=== PATIENT | female | born 1945 | race Caucasian/White ===

== ENCOUNTER 2020-07-21 07:41 | Outpatient (REF) | payer MEDICARE, MEDICAID, SELFPAY ==
[2020-07-21 08:59] LABS: MANUAL DIFF FLAG NO
[2020-07-21 09:03] LABS: Basophils Percent Auto 0.2 % (0-2); Eosinophils Percent Auto 0.4 % (0-4); Hematocrit 37.9 % (37-47); Hemoglobin 12.5 g/dl (12.0-16.0); Imm Gran Abs Auto 0.01 X10*3/uL (0.00-0.03); Imm Gran Pct Auto 0.2 % (0.0-0.4); Lymphocytes Absolute Auto 2.4 X10*3/uL (1.2-4.9); Lymphocytes Percent Auto 42.2 % (20-40); Mean Corpuscular Hemoglobin 26.9 pg (27.0-33.0); Mean Corpuscular Volume 81.5 fL (80-98); Mean Platelet Volume 12.5 fL (9.4-12.3); Monocytes Absolute Auto 0.3 X10*3/uL (0.1-1.2); Neutrophils Absolute Auto 2.9 X10*3/uL (2.0-8.3); Platelet Count 180 X10*3/uL (160-400); Red Blood Count 4.65 X10*6/uL (4.20-5.50); Red Cell Distribution Width 14.6 % (11.0-16.0); White Blood Count 5.7 X10*3/uL (4.8-10.8)
[2020-07-21 09:15] LABS: Alanine Aminotransferase 87 U/L (0-31); Albumin Level 4.1 g/dL (3.5-5.0); Alkaline Phosphatase 74 U/L (39-117); Anion Gap 13 (12-20); Aspartate Amino Transferase 91 U/L (5-31); Bilirubin Total 0.5 mg/dL (0.0-1.0); Blood Urea Nitrogen 26 mg/dL (9-16); Calcium 8.4 mg/dL (8.4-10.2); Carbon Dioxide 26 mmol/L (22-29); Chloride 103 mmol/L (96-108); Cholesterol 151 mg/dL; Estimated Glomerular Filt Rate 46; Glucose Fasting 87 mg/dL (60-99); HDL Cholesterol 46 mg/dL; LDL Cholesterol Calculated 87 mg/dl; Potassium 3.7 mmol/l (3.3-5.1); Sodium 138 mmol/L (135-145); Total Protein 7.2 g/dL (6.5-8.0); Triglycerides 93 mg/dL
[2020-07-21 09:38] LABS: Thyroid Stimulating Hormone 3.05 uIU/mL (0.32-4.0)
[2020-07-21 09:53] LABS: Folate 15.6 ng/mL (> or = 4.0); Vitamin B12 463 pg/mL (200-900)
== END 2020-07-21 07:42 | disposition home or self-care (01) ==
LOC: HO.LAB 07:41
PROVIDERS: Visit Provider Internal Medicine
DX: E78.00 Pure hypercholesterolemia, unspecified (principal); I10 Essential (primary) hypertension; M79.10 Myalgia, unspecified site; R41.0 Disorientation, unspecified
CPT/HCPCS: 36415; 80053; 80061; 82550; 82607; 82746; 84443; 85025

== ENCOUNTER 2020-07-22 07:08 | Outpatient (REF) | payer MEDICARE, MEDICAID, SELFPAY | END 2020-07-22 07:09 | disposition home or self-care (01) | LOC: HO.LAB 07:08 | PROVIDERS: Visit Provider Internal Medicine | DX: Z20.828 Contact with and (suspected) exposure to other viral communicable diseases (principal) | CPT/HCPCS: C9803; U0003 ==

== ENCOUNTER 2020-08-11 06:48 | Outpatient (REF) | payer MEDICARE, MEDICAID, SELFPAY | END 2020-08-11 06:49 | disposition home or self-care (01) | LOC: HO.LAB 06:48 | PROVIDERS: PCP Internal Medicine; Visit Provider Internal Medicine | DX: Z20.828 Contact with and (suspected) exposure to other viral communicable diseases (principal) | CPT/HCPCS: C9803; U0003 ==

== ENCOUNTER 2020-11-28 08:14 | Outpatient (REF) | payer MEDICARE, MEDICAID, SELFPAY ==
[2020-11-28 09:37] LABS: Alanine Aminotransferase 25 U/L (0-31); Albumin Level 4.1 g/dL (3.5-5.0); Alkaline Phosphatase 82 U/L (39-117); Anion Gap 14 (12-20); Aspartate Amino Transferase 24 U/L (5-31); Bilirubin Total 0.5 mg/dL (0.0-1.0); Blood Urea Nitrogen 21 mg/dL (9-16); Calcium 9.1 mg/dL (8.4-10.2); Carbon Dioxide 23 mmol/L (22-29); Chloride 104 mmol/L (96-108); Estimated Glomerular Filt Rate 56; Glucose Random 90 mg/dL (60-115); Potassium 4.3 mmol/L (3.3-5.1); Sodium 137 mmol/L (135-145); Total Protein 7.4 g/dL (6.5-8.0)
== END 2020-11-28 08:15 | disposition home or self-care (01) ==
LOC: HO.LAB 08:14
PROVIDERS: PCP Internal Medicine; Visit Provider Internal Medicine
DX: E78.00 Pure hypercholesterolemia, unspecified (principal); I12.9 Hypertensive chronic kidney disease with stage 1 through stage 4 chronic kidney disease, or unspecified chronic kidney disease; J45.909 Unspecified asthma, uncomplicated; M17.0 Bilateral primary osteoarthritis of knee
CPT/HCPCS: 36415; 80053

== ENCOUNTER 2020-12-06 10:40 | Outpatient (REF) | payer MEDICARE, MEDICAID, SELFPAY ==
--- NOTE | ~2020-12-06 | MM_ITS ---
EXAMINATION: MM SCREENING DIGITAL BREAST TOMOSYNTHESIS, BILATERAL CLINICAL INFORMATION: Screening. Asymptomatic. The lifetime risk of breast cancer based on the Tyrer-Cuzick Model is 3%. COMPARISON: Mammography: 09/28/2019, 08/04/2018, 06/11/2017 TECHNIQUE: Digital breast tomosynthesis is performed in both the craniocaudal and mediolateral oblique views along with computer-aided detection (CAD). Synthesized 2D images are generated from the tomosynthesis. Additional exaggerated right CC view is provided. FINDINGS: The breasts are heterogeneously dense, which may obscure small masses (ACR BI-RADS breast composition Category c). There are no significant masses, abnormal calcifications, or other abnormalities. Parenchymal pattern is similar to prior exams. No significant changes. MM/MM tomosynthesis screening BI IMPRESSION: No mammographic evidence of malignancy. ASSESSMENT: BI-RADS 1: Negative RECOMMENDATION: Routine annual mammography screening. This patient's information was entered into a reminder system with a target due date for their next mammogram.
== END 2020-12-06 10:41 | disposition home or self-care (01) ==
LOC: HO.MAMMO 10:40
PROVIDERS: PCP Internal Medicine; Visit Provider Internal Medicine
DX: Z12.31 Encounter for screening mammogram for malignant neoplasm of breast (principal)
CPT/HCPCS: 77063; 77067

== ENCOUNTER 2021-12-12 08:29 | Outpatient (REF) | payer MEDICARE, MEDICAID, SELFPAY ==
[2021-12-12 08:54] LABS: MANUAL DIFF FLAG NO
[2021-12-12 10:10] LABS: Basophils Absolute Auto 0.1 X10*3/uL (0.0-0.2); Basophils Percent Auto 0.9 % (0-2); Eosinophils Absolute Auto 0.2 X10*3/uL (0.0-0.4); Eosinophils Percent Auto 1.8 % (0-4); Hemoglobin 12.8 g/dl (12.0-16.0); Imm Gran Abs Auto 0.04 X10*3/uL (0.00-0.03); Imm Gran Pct Auto 0.4 % (0.0-0.4); Lymphocytes Absolute Auto 3.5 X10*3/uL (1.2-4.9); Lymphocytes Percent Auto 32.5 % (20-40); Mean Corpuscular Hemoglobin 26.2 pg (27.0-33.0); Mean Platelet Volume 11.6 fL (9.4-12.3); Monocytes Absolute Auto 0.7 X10*3/uL (0.1-1.2); Monocytes Percent Auto 6.7 % (2-11); Neutrophils Absolute Auto 6.3 x10*3/uL (2.0-8.3); Neutrophils Percent Auto 57.7 % (45-73); Platelet Count 335 X10*3/uL (160-400); Red Blood Count 4.88 X10*6/uL (4.20-5.50); Red Cell Distribution Width 14.3 % (11.0-16.0); White Blood Count 10.9 X10*3/uL (4.8-10.8)
[2021-12-12 10:39] LABS: Alanine Aminotransferase 26 U/L (0-31); Albumin Level 4.2 g/dL (3.5-5.0); Alkaline Phosphatase 86 U/L (39-117); Anion Gap 13 (12-20); Aspartate Amino Transferase 26 U/L (5-31); Bilirubin Total 0.4 mg/dL (0.0-1.0); Blood Urea Nitrogen 18 mg/dL (9-16); Calcium 9.8 mg/dL (8.4-10.2); Carbon Dioxide 27 mmol/L (22-29); Chloride 99 mmol/L (96-108); Cholesterol 192 mg/dL; Estimated Glomerular Filt Rate 51; Glucose Random 83 mg/dL (60-115); HDL Cholesterol 64 mg/dL; LDL Cholesterol Calculated 116 mg/dl; Potassium 4.2 mmol/L (3.3-5.1); Sodium 135 mmol/L (135-145); Total Protein 7.7 g/dL (6.5-8.0); Triglycerides 62 mg/dL
== END 2021-12-12 08:30 | disposition home or self-care (01) ==
LOC: HO.LAB 08:29
PROVIDERS: PCP Internal Medicine; Visit Provider Internal Medicine
DX: E78.00 Pure hypercholesterolemia, unspecified (principal); I12.9 Hypertensive chronic kidney disease with stage 1 through stage 4 chronic kidney disease, or unspecified chronic kidney disease; N18.9 Chronic kidney disease, unspecified; J45.909 Unspecified asthma, uncomplicated; M17.0 Bilateral primary osteoarthritis of knee
CPT/HCPCS: 36415; 80053; 80061; 85025

== ENCOUNTER 2022-10-17 08:02 | Outpatient (REF) | payer MEDICARE, MEDICAID, SELFPAY ==
[2022-10-17 08:58] LABS: Basophils Absolute Auto 0.1 X10*3/uL (0.0-0.2); Basophils Percent Auto 0.8 % (0-2); Eosinophils Absolute Auto 0.2 X10*3/uL (0.0-0.4); Eosinophils Percent Auto 1.6 % (0-4); Hematocrit 40.3 % (37.0-47.0); Hemoglobin 12.8 g/dl (12.0-16.0); Imm Gran Abs Auto 0.04 X10*3/uL (0.00-0.03); Imm Gran Pct Auto 0.3 % (0.0-0.4); Lymphocytes Absolute Auto 5.3 X10*3/uL (1.2-4.9); Lymphocytes Percent Auto 39.8 % (20-40); MANUAL DIFF FLAG SCAN; Mean Corpuscular HGB Conc 31.8 g/dl (31.0-35.0); Mean Corpuscular Volume 81.7 fL (80.0-98.0); Mean Platelet Volume 10.8 fL (9.4-12.3); Monocytes Absolute Auto 0.9 X10*3/uL (0.1-1.2); Monocytes Percent Auto 6.4 % (2-11); Neutrophils Absolute Auto 6.8 x10*3/uL (2.0-8.3); Neutrophils Percent Auto 51.1 % (45-73); Platelet Count 351 X10*3/uL (160-400); Red Blood Count 4.93 X10*6/uL (4.20-5.50); Red Cell Distribution Width 14.3 % (11.0-16.0); SCAN SMEAR FLAG 1; White Blood Count 13.3 X10*3/uL (4.8-10.8)
[2022-10-17 09:17] LABS: Alanine Aminotransferase 32 U/L (0-31); Albumin Level 4.1 g/dL (3.5-5.0); Alkaline Phosphatase 95 U/L (39-117); Anion Gap 12 (12-20); Aspartate Amino Transferase 29 U/L (5-31); Bilirubin Total 0.6 mg/dL (0.0-1.0); Blood Urea Nitrogen 22 mg/dL (9-16); Calcium 9.3 mg/dL (8.4-10.2); Carbon Dioxide 25 mmol/L (22-29); Chloride 104 mmol/L (96-108); Estimated Glomerular Filt Rate 45; Glucose Random 80 mg/dL (60-115); Potassium 4.3 mmol/L (3.3-5.1); Sodium 137 mmol/L (135-145); Total Protein 7.5 g/dL (6.5-8.0)
[2022-10-17 09:34] LABS: SLIDE REVIEW VERIFIED
== END 2022-10-17 08:03 | disposition home or self-care (01) ==
LOC: HO.LAB 08:02
PROVIDERS: PCP Internal Medicine; Visit Provider Internal Medicine
DX: I12.9 Hypertensive chronic kidney disease with stage 1 through stage 4 chronic kidney disease, or unspecified chronic kidney disease (principal); N18.9 Chronic kidney disease, unspecified; E78.00 Pure hypercholesterolemia, unspecified; J45.909 Unspecified asthma, uncomplicated; Z86.010 Personal history of colon polyps; M85.80 Other specified disorders of bone density and structure, unspecified site
CPT/HCPCS: 36415; 80053; 82306; 85025

== ENCOUNTER 2023-04-01 09:10 | Outpatient (REF) | payer OTHER, SELFPAY ==
--- NOTE | ~2023-04-01 | MM_ITS ---
EXAMINATION: MM SCREENING DIGITAL BREAST TOMOSYNTHESIS, BILATERAL CLINICAL INFORMATION: Screening. Asymptomatic. COMPARISON: Mammography: 12/06/2020, 09/28/2019, and dating back to 2013. TECHNIQUE: Digital breast tomosynthesis is performed in both the craniocaudal and mediolateral oblique views along with computer-aided detection (CAD). Synthesized 2D images are generated from the tomosynthesis. FINDINGS: The breasts are heterogeneously dense, which may obscure small masses (ACR BI-RADS breast composition Category c). Grouped dermal calcifications versus artifact noted in the far inferior medial left breast. Otherwise, there are no suspicious masses, suspicious grouped calcifications, or areas of architectural distortion. The parenchymal pattern is stable from prior exams. MM/MM tomosynthesis screening BI IMPRESSION: No mammographic evidence of malignancy. ASSESSMENT: BI-RADS BI-RADS 1 - Negative RECOMMENDATION: Routine annual mammography screening. 1 year F/U This examination should not preclude the clinical evaluation of a suspicious palpable abnormality. This patient's information was entered into a reminder system with a target due date for their next mammogram.
== END 2023-04-01 09:11 | disposition home or self-care (01) ==
LOC: HO.MAMMO 09:10
PROVIDERS: PCP Internal Medicine; Visit Provider Internal Medicine
DX: Z12.31 Encounter for screening mammogram for malignant neoplasm of breast (principal)
CPT/HCPCS: 77063; 77067

== ENCOUNTER → 2023-04-01 09:45 | Outpatient (BNV) | payer OTHER, SELFPAY | PROVIDERS: PCP Internal Medicine; Visit Provider Radiology Diagnostic Radiology | DX: Z12.31 Encounter for screening mammogram for malignant neoplasm of breast (principal) | CPT/HCPCS: 77063; 77067 ==

== ENCOUNTER 2023-04-08 07:51 | Outpatient (REF) | payer OTHER, SELFPAY ==
[2023-04-08 08:10] LABS: MANUAL DIFF FLAG NO
[2023-04-08 09:00] LABS: Basophils Absolute Auto 0.1 X10*3/uL (0.0-0.2); Basophils Percent Auto 0.9 % (0-2); Eosinophils Absolute Auto 0.2 X10*3/uL (0.0-0.4); Eosinophils Percent Auto 1.8 % (0-4); Hematocrit 38.3 % (37.0-47.0); Hemoglobin 12.6 g/dl (12.0-16.0); Imm Gran Abs Auto 0.02 X10*3/uL (0.00-0.03); Imm Gran Pct Auto 0.2 % (0.0-0.4); Lymphocytes Absolute Auto 3.9 X10*3/uL (1.2-4.9); Lymphocytes Percent Auto 34.2 % (20-40); Mean Corpuscular HGB Conc 32.9 g/dl (31.0-35.0); Mean Corpuscular Hemoglobin 26.9 pg (27.0-33.0); Mean Corpuscular Volume 81.8 fL (80.0-98.0); Mean Platelet Volume 11.4 fL (9.4-12.3); Monocytes Absolute Auto 0.8 X10*3/uL (0.1-1.2); Monocytes Percent Auto 6.6 % (2-11); Neutrophils Absolute Auto 6.4 x10*3/uL (2.0-8.3); Neutrophils Percent Auto 56.3 % (45-73); Platelet Count 340 X10*3/uL (160-400); Red Blood Count 4.68 X10*6/uL (4.20-5.50); White Blood Count 11.4 X10*3/uL (4.8-10.8)
[2023-04-08 09:44] LABS: Alanine Aminotransferase 21 U/L (0-31); Albumin Level 4.2 g/dL (3.5-5.0); Alkaline Phosphatase 84 U/L (39-117); Anion Gap 12 (12-20); Aspartate Amino Transferase 24 U/L (5-31); Bilirubin Total 0.5 mg/dL (0.0-1.0); Blood Urea Nitrogen 21 mg/dL (9-16); Calcium 9.6 mg/dL (8.4-10.2); Carbon Dioxide 26 mmol/L (22-29); Chloride 100 mmol/L (96-108); Cholesterol 211 mg/dL; Estimated Glomerular Filt Rate 44; Glucose Random 82 mg/dL (60-115); HDL Cholesterol 62 mg/dL; LDL Cholesterol Calculated 132 mg/dl; Potassium 4.4 mmol/L (3.3-5.1); Sodium 134 mmol/L (135-145); Total Protein 8.1 g/dL (6.5-8.0); Triglycerides 87 mg/dL
[2023-04-08 09:52] LABS: Vitamin B12 234 pg/mL (200-900)
[2023-04-08 10:02] LABS: Thyroid Stimulating Hormone 1.63 uIU/mL (0.32-4.0)
== END 2023-04-08 07:52 | disposition home or self-care (01) ==
LOC: HO.LAB 07:51
PROVIDERS: PCP Internal Medicine; Visit Provider Internal Medicine
DX: E78.00 Pure hypercholesterolemia, unspecified (principal); I12.9 Hypertensive chronic kidney disease with stage 1 through stage 4 chronic kidney disease, or unspecified chronic kidney disease; N18.9 Chronic kidney disease, unspecified; J45.909 Unspecified asthma, uncomplicated; K21.9 Gastro-esophageal reflux disease without esophagitis
CPT/HCPCS: 36415; 80053; 80061; 82607; 84443; 85025

== ENCOUNTER 2023-05-08 07:55 | Day surgery (SDC) | payer OTHER, SELFPAY ==
--- NOTE | 2023-05-07 08:59 | HO.ANESPROP2 ---
HPI - Anesthesia Eval Consult details Narrative: 77yo F for Colonoscopy PMFSH Past Medical History Medical History (Updated 05/13/23 @ 11:20 by SUE Tay) Elevated cholesterol HTN (hypertension) Asthma Surgical History Surgical History History of vocal cord polypectomy History of total abdominal hysterectomy Hx of cholecystectomy Hx of colonoscopy Social History Social History Patient Tobacco Use Status: Never used Tobacco Meds Allergies Allergy/AdvReac Type Severity Reaction Status Date / Time amoxicillin Allergy Hives Verified 05/13/23 09:03 jennings Allergy Hives Verified 05/13/23 09:03 raspberry Allergy Hives Verified 05/13/23 09:03 shellfish derived Allergy Shortness Verified 05/13/23 09:03 of Breath Home Medications Medication Instructions Recorded Confirmed Last Taken Type albuterol sulfate 90 mcg/actuation 2 puff inhalation QID 05/07/23 05/13/23 Unknown History aerosol inhaler fluticasone propionate 50 spray intranasal 05/07/23 05/13/23 Unknown History mcg/actuation nasal spray,suspension pravastatin 80 mg tablet 80 mg PO BEDTIME 05/07/23 05/13/23 Unknown History valsartan 320 mg tablet 320 mg PO DAILY 05/07/23 05/13/23 05/08/23 History acetaminophen 325 mg tablet 325 mg PO QID PRN 05/13/23 05/13/23 Unknown History (Tylenol) Exam Exam Date and Time: May 07, 2023 0859 Pertinent Lab Results Pertinent Lab Results: Laboratory Tests 04/08/23 08:09 WBC 11.4 H Hgb 12.6 Hct 38.3 Plt Count 340 Sodium 134 L Potassium 4.4 Chloride 100 Carbon Dioxide 26 BUN 21 H Creatinine 1.18 Assessment and Plan Assessment Anesthesia Assessment: Chart Reviewed
--- NOTE | 2023-05-08 | ECG_ITS ---
Test Reason : new onset Blood Pressure : / mmHG Vent. Rate : 101 BPM Atrial Rate : 000 BPM P-R Int : 000 ms QRS Dur : 084 ms QT Int : 370 ms P-R-T Axes : 000 -03 022 degrees QTc Int : 479 ms Atrial fibrillation with rapid ventricular response Possible Inferior infarct , age undetermined Abnormal ECG When compared with ECG of 31-MAR-2003 08:28, Atrial fibrillation has replaced Sinus rhythm Vent. rate has increased BY 40 BPM Borderline criteria for Inferior infarct are now Present Nonspecific T wave abnormality now evident in Lateral leads QT has lengthened Referred By: Deborah Becerril Electronically Signed By:ABHAY COLLIER
[2023-05-08 08:15] VITALS: BMI 43.7
[2023-05-08 08:31] VITALS: BP 150/69; PULSE 77; RESP 20; TEMP 36.3; O2SAT 97
[2023-05-08] MEDS: Lactated Ringers 1,000 ML 100 ML IVCONT (08:58)
--- NOTE | 2023-05-08 09:11 | HO.ANESPROP2 ---
[facility] Past Medical History Medical History Elevated cholesterol HTN (hypertension) Asthma Functional capacity: uses cane/walker Surgical History Surgical History History of vocal cord polypectomy History of total abdominal hysterectomy Hx of cholecystectomy Hx of colonoscopy Social History Social History Patient Tobacco Use Status: Never used Tobacco Are you DNR?: No Advance Directives: No Advance Directives Information Provided: Yes Nutrition Risks: No Nutritional Risk Meds Allergies Allergy/AdvReac Type Severity Reaction Status Date / Time amoxicillin Allergy Hives Verified 05/08/23 08:33 jennings Allergy Hives Verified 05/08/23 08:33 raspberry Allergy Hives Verified 05/08/23 08:33 shellfish derived Allergy Shortness Verified 05/08/23 08:33 of Breath Active Medications: Current Medications Albuterol Sulfate (Albuterol Sulfate (0.083%) 2.5 Mg/3 Ml Vial.Neb) 2.5 mg INHALE ONCE PRN PRN Reason: Shortness of Breath/Wheezing Lactated Ringer's (Lr) 1,000 mls @ 100 mls/hr IVCONT .Q10H KEELY Last Admin: 05/08/23 08:58 Dose: 100 mls/hr Sodium Biphosphate/Sodium Phosphate (Sodium Phosphate,[place]-Dibasic 133 Ml Enema) 133 ml [place] ONCE PRN PRN Reason: Poor Colonoscopy Prep Results Home Medications Medication Instructions Recorded Confirmed Last Taken Type albuterol sulfate 90 mcg/actuation 2 puff inhalation QID 05/07/23 05/07/23 Unknown History aerosol inhaler fluticasone propionate 50 spray intranasal 05/07/23 Unknown History mcg/actuation nasal spray,suspension hydrochlorothiazide 12.5 mg capsule 12.5 mg PO DAILY 05/07/23 05/07/23 Unknown History pravastatin 80 mg tablet 80 mg PO BEDTIME 05/07/23 05/07/23 Unknown History valsartan 320 mg tablet 320 mg PO DAILY 05/07/23 05/07/23 05/08/23 History Exam Exam Date and Time: May 08, 2023 0911 Height,Weight and Vital Signs: Height 5 ft 2 in Weight 108.409 kg Last Vital Signs Temp 97.3 F 05/08/23 08:31 Pulse 77 05/08/23 08:31 Resp 20 05/08/23 08:31 BP 150/69 H 05/08/23 08:31 Pulse Ox 97 05/08/23 08:31 O2 Del Method Room Air 05/08/23 08:31 Airway Mallampati Class: II TM Dist: >3cm Neck ROM: Full Heart: RRR Lungs: CTAk Assessment and Plan Assessment Anesthesia Assessment: Anesthesia Plan Discussed Final Anesthetic Review ASA Class: III Final Preanesthetic Review: Meds/Allgs Chart Reviewed, Consent Obtained/Reviewed and Anes Risks/Benef Reviewed Patient Risk: Low Procedure Risk: Low Anesthetic Plan Anesthetic Plan: MAC: Disposition: Standard PACU
--- NOTE | 2023-05-08 11:00 | P.BOP_ITS ---
Brief Operative Note Date of Service: 05/08/23 Pre-op diagnosis: Screening Post-op diagnosis: other (Diverticulosis) Procedure: Colonoscopy to the cecum Surgeon: Joseph Núñez Anesthesia: MAC Was an Treating Engineer Helper used for this Procedure?: No Estimated blood loss (mL): 0 Pathology: none sent Condition: stable Disposition: PACU
--- NOTE | 2023-05-08 11:02 | HO.ANESPROP2 ---
[facility] Past Medical History Medical History Elevated cholesterol HTN (hypertension) Asthma Functional capacity: uses cane/walker Surgical History Surgical History History of vocal cord polypectomy History of total abdominal hysterectomy Hx of cholecystectomy Hx of colonoscopy Social History Social History Patient Tobacco Use Status: Never used Tobacco Are you DNR?: No Advance Directives: No Advance Directives Information Provided: Yes Nutrition Risks: No Nutritional Risk Meds Allergies Allergy/AdvReac Type Severity Reaction Status Date / Time amoxicillin Allergy Hives Verified 05/08/23 08:33 jennings Allergy Hives Verified 05/08/23 08:33 raspberry Allergy Hives Verified 05/08/23 08:33 shellfish derived Allergy Shortness Verified 05/08/23 08:33 of Breath Active Medications: Current Medications Albuterol Sulfate (Albuterol Sulfate (0.083%) 2.5 Mg/3 Ml Vial.Neb) 2.5 mg INHALE ONCE PRN PRN Reason: Shortness of Breath/Wheezing Lactated Ringer's (Lr) 1,000 mls @ 100 mls/hr IVCONT .Q10H KEELY Last Admin: 05/08/23 08:58 Dose: 100 mls/hr Sodium Biphosphate/Sodium Phosphate (Sodium Phosphate,[place]-Dibasic 133 Ml Enema) 133 ml [place] ONCE PRN PRN Reason: Poor Colonoscopy Prep Results Home Medications Medication Instructions Recorded Confirmed Last Taken Type albuterol sulfate 90 mcg/actuation 2 puff inhalation QID 05/07/23 05/07/23 Unknown History aerosol inhaler fluticasone propionate 50 spray intranasal 05/07/23 Unknown History mcg/actuation nasal spray,suspension hydrochlorothiazide 12.5 mg capsule 12.5 mg PO DAILY 05/07/23 05/07/23 Unknown History pravastatin 80 mg tablet 80 mg PO BEDTIME 05/07/23 05/07/23 Unknown History valsartan 320 mg tablet 320 mg PO DAILY 05/07/23 05/07/23 05/08/23 History Exam Exam Date and Time: May 08, 2023 1102 Height,Weight and Vital Signs: Height 5 ft 2 in Weight 108.409 kg Last Vital Signs Temp 97.3 F 05/08/23 08:31 Pulse 77 05/08/23 08:31 Resp 20 05/08/23 08:31 BP 150/69 H 05/08/23 08:31 Pulse Ox 97 05/08/23 08:31 O2 Del Method Room Air 05/08/23 08:31 Airway Mallampati Class: II TM Dist: >3cm Neck ROM: Full Heart: RRR Lungs: CTA Assessment and Plan Final Anesthetic Review ASA Class: III and V Final Preanesthetic Review: Meds/Allgs Chart Reviewed, Consent Obtained/Reviewed and Anes Risks/Benef Reviewed Patient Risk: Low Procedure Risk: Low Anesthetic Plan Anesthetic Plan: MAC: Disposition: Standard PACU
[2023-05-08 11:05] VITALS: BP 83/43; PULSE 127; RESP 16; TEMP 36.6; O2SAT 95
[2023-05-08 11:20] VITALS: BP 94/50; PULSE 108; RESP 20; TEMP 36.1; O2SAT 98
--- NOTE | 2023-05-08 12:01 | OP_ITS ---
DATE OF SERVICE: 05/08/2023 SURGEON: Joseph Núñez MD PREOPERATIVE DIAGNOSIS: POSTOPERATIVE DIAGNOSIS: PROCEDURE PERFORMED: Colonoscopy to cecum. ESTIMATED BLOOD LOSS: COMPLICATIONS: ANESTHESIA: Monitored anesthesia care. ASSISTANTS: SPECIMENS: POSTOPERATIVE DIAGNOSES: Colorectal cancer screening and personal history of tubular adenoma of the colon, diverticulosis, internal hemorrhoids. INDICATIONS FOR PROCEDURE: The patient presents for evaluation of colorectal cancer screening and a prior history of a tubular adenoma of the colon. Full consent obtained from her for this, including risks of bleeding and perforation. PREPOPERATIVE DIAGNOSES: Colorectal cancer screening and personal history of tubular adenoma of the colon. DESCRIPTION OF PROCEDURE: The patient was placed in the left lateral decubitus position. The digital rectal exam revealed no abnormalities. The Olympus video pediatric colonoscope was entered into the rectum and advanced to the cecum. Advancement to the cecum was difficult and required turning her into the supine position and abdominal wall pressure. However, once in the cecum, I did identify normal-appearing cecal pouch with appendiceal orifice and a normal-appearing ileocecal valve. The entire cecum and ileocecal valve appeared normal. The scope was then slowly withdrawn, assessing all mucosal surfaces carefully. Preparation was excellent. I did not visualize any sign of polyps, colitis, nor angiodysplasia. There was a mild amount of sigmoid diverticulosis. In the rectum, scope was retroflexed, visualizing internal hemorrhoids, but no other pathology. The rectal mucosa appeared normal. Scope was straightened and withdrawn from the patient. She tolerated the procedure well and was returned to recovery area in stable condition. IMPRESSION: 1. Diverticulosis. 2. Internal hemorrhoids. PLAN: Given her age and today's negative exam, I would recommend that she not need any further screening colonoscopies. As such, she will see me on a p.r.n. basis. This has been discussed with her family. MD TORRIE Madera/CARMEN / [id number]
== END 2023-05-08 11:35 | disposition home or self-care (01) ==
PROVIDERS: PCP Internal Medicine; Visit Provider Internal Medicine
PROC: 0DJD8ZZ Inspection of Lower Intestinal Tract, Via Natural or Artificial Opening Endoscopic (ICD-10-PCS; CPT 45378; principal; 2023-05-08 09:40)
DX: Z12.11 Encounter for screening for malignant neoplasm of colon (principal); Z86.010 Personal history of colon polyps; K57.30 Diverticulosis of large intestine without perforation or abscess without bleeding; K64.8 Other hemorrhoids; I10 Essential (primary) hypertension; E78.00 Pure hypercholesterolemia, unspecified; J45.909 Unspecified asthma, uncomplicated; Z79.51 Long term (current) use of inhaled steroids; Z79.899 Other long term (current) drug therapy; Z88.1 Allergy status to other antibiotic agents; Z90.49 Acquired absence of other specified parts of digestive tract
CPT/HCPCS: G0105; 93005

== ENCOUNTER 2023-05-08 11:46 | Emergency (ER) | payer OTHER, SELFPAY ==
--- NOTE | ~2023-05-08 | XR_ITS ---
EXAMINATION: XR CHEST CLINICAL INFORMATION: Dyspnea COMPARISON: None available. TECHNIQUE: Frontal view of the chest was obtained. FINDINGS: No acute finding. Lung cabral are felt to be grossly clear. Possible hiatal hernia retrocardiac The cardiac silhouette is within normal limits. The hilar regions do not appear pathologically enlarged. There is no effusion. XR/XR chest 1V IMPRESSION: No convincing evidence for acute finding. Retrocardiac opacity may well represent hiatal hernia
[2023-05-08 11:54] VITALS: BP 146/81; PULSE 106; RESP 15; TEMP 36.4; O2SAT 98; BMI 42.7
--- NOTE | 2023-05-08 12:08 | ED_ITS ---
HPI - Arrhythmia/Palpitations General Chief Complaint: Arrhythmia/Palpitations Stated Complaint: New Onset Afib Time Seen by Provider: 05/08/23 11:53 Source: patient and old records reviewed Mode of arrival: other (from PACU) Limitations: no limitations History of Present Illness HPI narrative: 77 yo female with PMH of HLD, HTN, asthma here with c/o being post routine colonoscopy when in PACU they noted she was in afib. She denies symptoms to me and states she has never had this before. She denies any symptoms before the procedure other than diarrhea, no CP/SOB calf pain MD complaint: rapid heart beat Onset (ago): unknown Duration: constant Severity: mild Context: occurred during rest Associated symptoms: denies other symptoms Related Data Home Medications Medication Instructions Recorded Confirmed albuterol sulfate 90 mcg/actuation 2 puff inhalation QID 05/07/23 05/07/23 aerosol inhaler fluticasone propionate 50 spray intranasal 05/07/23 mcg/actuation nasal spray,suspension hydrochlorothiazide 12.5 mg capsule 12.5 mg PO DAILY 05/07/23 05/07/23 pravastatin 80 mg tablet 80 mg PO BEDTIME 05/07/23 05/07/23 valsartan 320 mg tablet 320 mg PO DAILY 05/07/23 05/07/23 Previous Rx's Medication Instructions Recorded apixaban 5 mg tablet (Eliquis) 5 mg PO BID #60 tabs 05/08/23 metoprolol succinate 50 mg 50 mg PO DAILY #30 tabs 05/08/23 tablet,extended release 24 hr (Toprol XL) Allergies Allergy/AdvReac Type Severity Reaction Status Date / Time amoxicillin Allergy Hives Verified 05/08/23 08:33 jennings Allergy Hives Verified 05/08/23 08:33 raspberry Allergy Hives Verified 05/08/23 08:33 shellfish derived Allergy Shortness Verified 05/08/23 08:33 of Breath Review of Systems 2 Review of Systems: Constitutional : No Fever, No Chills, No Fatigue ENT/Mouth : No sore throat, No Rhinorrhea Eyes: No Eye Pain, No Swelling, No Redness Cardiovascular : No Chest Pain, No SOB, No Dyspnea on Exertion Respiratory : No Cough, No Sputum Gastrointestinal : No Nausea, No Vomiting, No Diarrhea, No abdominal Pain Genitourinary : No Dysuria, No Urinary Frequency, No Hematuria, Musculoskeletal : No joint pain, No Myalgias, No Joint Swelling Skin : No Skin Lesions, No rash Neuro : No Weakness, No Numbness, No Dizziness, no Headache Psych : No Anxiety/Panic, No Depression Heme/Lymph: No Bruising, No Bleeding,No Lymphadenopathy Endocrine : No Polyuria, No Polydipsia All other systems reviewed and are negative PMFSH Past Medical History Attestation statement: The following information was validated with the patient. Source: old records reviewed Medical History Elevated cholesterol HTN (hypertension) Asthma Surgical History History of vocal cord polypectomy History of total abdominal hysterectomy Hx of cholecystectomy Hx of colonoscopy Social History Social History Patient Tobacco Use Status: Never used Tobacco Advance Directives: No Advance Directives Information Provided: Yes Physical Exam 2 Vital Signs: Vital Signs: Last Vital Signs Temp 98.1 F 05/08/23 12:36 Pulse 88 05/08/23 14:37 Resp 19 05/08/23 14:37 BP 148/89 H 05/08/23 14:37 Pulse Ox 96 05/08/23 14:37 O2 Del Method Room Air 05/08/23 14:37 BMI result Body Mass Index 42.7 Appearance: Alert. Oriented X3. No acute distress. Eyes: Pupils equal, round and reactive to light. ENT: Pharynx normal. Neck: Normal inspection. Neck supple. CVS: irregular heart rate and rhythm. Pulses normal. Respiratory: No respiratory distress. Breath sounds normal. Abdomen: Soft and nontender. Skin: Skin warm and dry. Normal skin color. Normal skin turgor. Extremities: No lower extremity edema. No calf ttp Neuro: Oriented X 3. No motor deficit. No sensory deficit. Course Course Course Narrative: dilt x 2 @ 10mg Reevaluation(s) Reevaluation #1: HR down in 80s feels good will start on toprol and eliquid confirmed with Dr. Wilton crawford to start on DOAC Medications Administered Discontinued Medications Generic Name Dose Route Start Last Admin Trade Name Freq PRN Reason Stop Dose Admin Apixaban 5 mg 05/08/23 14:55 05/08/23 15:14 Apixaban 5 Mg Tablet PO 05/08/23 14:56 5 mg ONCE ONE Administration Diltiazem HCl 10 mg 05/08/23 12:19 05/08/23 12:33 Diltiazem Hcl 50 Mg/10 Ml Vial IVPUSH 05/08/23 12:20 10 mg STAT STA Administration Diltiazem HCl 10 mg 05/08/23 12:48 05/08/23 13:23 Diltiazem Hcl 50 Mg/10 Ml Vial IVPUSH 05/08/23 12:49 10 mg ONCE ONE Administration Metoprolol Succinate 12.5 mg 05/08/23 14:55 05/08/23 15:14 Metoprolol Succinate Er 12.5 Mg Halftab.Er.24h PO 05/08/23 14:56 12.5 mg ONCE ONE Administration Protocol Medical Decision Making Medical Decision Making [facility] Narrative: 77 yo female with PMH of HLD, HTN, asthma here with asymptomatic HTN post colonoscopy prep - she has no CP/SOB no signs of DVT she states this has never happened before and she feels fine. Will obtain CXR, EKG, basic labs and lytes given prep. Will start on low dose dilt and consult GI for DOAC usage. CHADsVASC2 score = 4 patient denies fall risk GIB hx or need for transfusions Differential Diagnosis Differential Diagnoses: The differential diagnosis associated with the presentation includes afib, lyte abnormality Admission/Observation Consideration of admission/observation: Escalation of care including admission/observation considered Consult Healthcare Provider Management of the patient was discussed with: Business [employer] Dean (discussed with GI if any contraindication post procedure for DOAC) Lab Data [facility] Lab Attestation statement: I reviewed the patient's lab results. 05/08/23 14:09 05/08/23 14:09 Labs: Lab Results 05/08/23 05/08/23 Range/Units 14:09 14:10 WBC 15.0 H (4.8-10.8) X10*3/uL RBC 4.84 (4.20-5.50) X10*6/uL Hgb 13.0 (12.0-16.0) g/dl Hct 38.9 (37.0-47.0) % MCV 80.4 (80.0-98.0) fL MCH 26.9 L (27.0-33.0) pg MCHC 33.4 (31.0-35.0) g/dl RDW 13.6 (11.0-16.0) % Plt Count 367 (160-400) X10*3/uL MPV 9.8 (9.4-12.3) fL Immature Gran % (Auto) 0.3 (0.0-0.4) % Neut % (Auto) 63.8 (45-73) % Lymph % (Auto) 29.8 (20-40) % Wayne % (Auto) 4.5 (2-11) % Eos % (Auto) 1.1 (0-4) % Baso % (Auto) 0.5 (0-2) % Lymph # (Auto) 4.5 (1.2-4.9) X10*3/uL Wayne # (Auto) 0.7 (0.1-1.2) X10*3/uL Eos # (Auto) 0.2 (0.0-0.4) X10*3/uL Baso # (Auto) 0.1 (0.0-0.2) X10*3/uL Abs Immat Gran (auto) 0.04 H (0.00-0.03) X10*3/uL Absolute Neuts (auto) 9.6 H (2.0-8.3) x10*3/uL Absolute Nucleated RBC 0.000 (0.0-0.012) X10*3/uL Nucleated RBC % (auto) 0.0 (0.0-0.2) /100WBC PT 12.0 (11.1-13.3) SEC INR 1.0 (0.9-1.1) Sodium 135 (135-145) mmol/L Potassium 3.7 (3.3-5.1) mmol/L Chloride 102 (96-108) mmol/L Carbon Dioxide 25 (22-29) mmol/L Anion Gap 12 (12-20) BUN 12 (9-16) mg/dL Creatinine 0.96 (0.5-1.4) mg/dL Estim Creat Clear Calc 55.2 Estimated GFR 56 Random Glucose 85 (60-115) mg/dL Calcium 9.7 (8.4-10.2) mg/dL Magnesium 1.8 (1.6-2.6) mg/dL Total Bilirubin 0.4 (0.0-1.0) mg/dL Direct Bilirubin 0.2 (0.0-0.5) mg/dL AST 23 (5-31) U/L ALT 17 (0-31) U/L Alkaline Phosphatase 88 (39-117) U/L Troponin I High Sens 4.3 (<3.5-17.0) ng/L B-Natriuretic Peptide 87 (<100) pg/mL Total Protein 7.6 (6.5-8.0) g/dL Albumin 3.9 (3.5-5.0) g/dL TSH 1.30 (0.32-4.0) uIU/mL COVID-19 (VINOD) Negative (Negative) COVID-19 Clin Com See Note Independent Interpretation I performed an independent interpretation of an: EKG and Plain X-Ray Interpretation: Rate: 101 Rhythm: afib [place]: normal Normal QRS complex. ST T wave : no KATINA qTC: slightly prolonged prior studies: changed from prior The study has been interpreted contemporaneously by me. . Radiology Impression Discussion of test interpretation with radiology: I have reviewed the radiologist's reading. Independent Historian Clinical information obtained from an independent historian. History obtained from or confirmed by: Other External Record Review External record reviewed: Inpatient record Critical Care Time Critical Care Time Critical Care Time: Yes Total Critical Care Time: 35 Attestation: repeat diltiazem IV boluses for rate control of rapid afib I attest to this time spent taking care of the patient Discharge Plan Discharge Clinical Impression: Atrial fibrillation Qualifiers: Atrial fibrillation type: unspecified Qualified Code(s): I48.91 - Unspecified atrial fibrillation Patient Disposition: Home, Self-Care Instructions: A-fib (Atrial Fibrillation) (ED), Blood Thinners (ED) Additional Instructions: hold toprol if blood pressure is less than 100 or heart rate is less than 60. return for chest pain, dizziness, trouble breathing, black or bloody stools or any other concerns. if you have a bloody nose that will not stop, you fall and hit your head, you have black or bloody stools please seek medical care. YOU CANNOT TAKE ASPIRIN, MOTRIN, ALEVE, NAPROSYN, IBUPROFEN (NSAIDS) WHILE ON ELIQUIS. TYLENOL IS OKAY. 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 START THE NEW MEDICATIONS IN THE MORNING STOP THE HYDROCHLORTHIAZIDE Prescriptions: New metoprolol succinate [Toprol XL] 50 mg tablet extended release 24 hr 50 mg PO DAILY Qty: 30 0RF Eliquis 5 mg tablet 5 mg PO BID Qty: 60 0RF No Action pravastatin 80 mg tablet 80 mg PO BEDTIME valsartan 320 mg tablet 320 mg PO DAILY hydrochlorothiazide 12.5 mg capsule 12.5 mg PO DAILY albuterol sulfate 90 mcg/actuation HFA aerosol inhaler 2 puff INHALATION QID fluticasone propionate 50 mcg/actuation spray,suspension intranasal Referrals: Katie Rodriguez MD [Primary Care Provider] - (call for next appointment) Interventions: ED Discharge Assessment Last Done: 05/08/23 15:32 Discharge Date/Time: 05/08/23 15:32
[2023-05-08] MEDS: dilTIAZem HCL 50 MG/10 ML VIAL 10 MG IVPUSH ×2 (12:33→13:23)
[2023-05-08 12:36] VITALS: BP 127/105; PULSE 121; RESP 14; TEMP 36.7; O2SAT 96
--- NOTE | 2023-05-08 12:37 | PC.NURSE ---
pt comes in from pacu after new onset afib post colonoscopy. pt reports no pain, no sob, chest pain or other symptoms. HR 97-130, afib on monitor. Cardizem IV push given per MAR labs pending. will ctm
--- NOTE | 2023-05-08 13:26 | PC.NURSE ---
HR 90s-120s, second dose of diltiazem given per MAR, HR as low as 80s, still jumps up to 110s.
[2023-05-08 14:15] LABS: MANUAL DIFF FLAG NO
[2023-05-08 14:16] LABS: Basophils Absolute Auto 0.1 X10*3/uL (0.0-0.2); Basophils Percent Auto 0.5 % (0-2); Eosinophils Absolute Auto 0.2 X10*3/uL (0.0-0.4); Eosinophils Percent Auto 1.1 % (0-4); Hematocrit 38.9 % (37.0-47.0); Imm Gran Abs Auto 0.04 X10*3/uL (0.00-0.03); Imm Gran Pct Auto 0.3 % (0.0-0.4); Lymphocytes Absolute Auto 4.5 X10*3/uL (1.2-4.9); Lymphocytes Percent Auto 29.8 % (20-40); Mean Corpuscular HGB Conc 33.4 g/dl (31.0-35.0); Mean Corpuscular Hemoglobin 26.9 pg (27.0-33.0); Mean Corpuscular Volume 80.4 fL (80.0-98.0); Mean Platelet Volume 9.8 fL (9.4-12.3); Monocytes Absolute Auto 0.7 X10*3/uL (0.1-1.2); Monocytes Percent Auto 4.5 % (2-11); Neutrophils Absolute Auto 9.6 x10*3/uL (2.0-8.3); Neutrophils Percent Auto 63.8 % (45-73); Platelet Count 367 X10*3/uL (160-400); Red Blood Count 4.84 X10*6/uL (4.20-5.50); Red Cell Distribution Width 13.6 % (11.0-16.0)
[2023-05-08 14:29] LABS: COVID-19 Test Negative (Negative); IDNOW Serial# 6674DD1D
[2023-05-08 14:37] VITALS: BP 148/89; PULSE 88; RESP 19; O2SAT 96
[2023-05-08 14:45] LABS: B Type Natriuretic Peptide 87 pg/mL (<100)
[2023-05-08 14:46] LABS: Alanine Aminotransferase 17 U/L (0-31); Albumin Level 3.9 g/dL (3.5-5.0); Alkaline Phosphatase 88 U/L (39-117); Anion Gap 12 (12-20); Aspartate Amino Transferase 23 U/L (5-31); Bilirubin Direct 0.2 mg/dL (0.0-0.5); Bilirubin Total 0.4 mg/dL (0.0-1.0); Blood Urea Nitrogen 12 mg/dL (9-16); Calcium 9.7 mg/dL (8.4-10.2); Carbon Dioxide 25 mmol/L (22-29); Chloride 102 mmol/L (96-108); Creatinine Clr Calc Pharmacy 55.2; Estimated Glomerular Filt Rate 56; Glucose Random 85 mg/dL (60-115); Magnesium 1.8 mg/dL (1.6-2.6); Potassium 3.7 mmol/L (3.3-5.1); Sodium 135 mmol/L (135-145); Total Protein 7.6 g/dL (6.5-8.0)
[2023-05-08 14:47] LABS: Troponin-I High Sensitivity 4.3 ng/L (<3.5-17.0)
[2023-05-08] MEDS: Apixaban 5 MG TABLET PO (15:14)
[2023-05-08] MEDS: Metoprolol Succinate ER 12.5 MG HALFTAB.ER.24H PO (15:14)
--- NOTE | 2023-05-08 15:24 | ECG_ITS ---
Test Reason : afib Blood Pressure : / mmHG Vent. Rate : 115 BPM Atrial Rate : 000 BPM P-R Int : 000 ms QRS Dur : 082 ms QT Int : 340 ms P-R-T Axes : 000 -03 048 degrees QTc Int : 470 ms Atrial fibrillation with rapid ventricular response Low voltage QRS Nonspecific ST and T wave abnormality Abnormal ECG When compared with ECG of 08-MAY-2023 11:09, No significant change was found Referred By: Yaritza Greenberg Electronically Signed By:ABHAY COLLIER
== END 2023-05-08 15:32 | disposition home or self-care (01) ==
PROVIDERS: Emergency Provider Emergency Medicine; PCP Internal Medicine
DX: I48.91 Unspecified atrial fibrillation (principal); R06.02 Shortness of breath; I10 Essential (primary) hypertension; Z20.822 Contact with and (suspected) exposure to COVID-19; Z20.828 Contact with and (suspected) exposure to other viral communicable diseases; Z79.899 Other long term (current) drug therapy
CPT/HCPCS: 71045; 80048; 80076; 83735; 83880; 84443; 84484; 85025; 85610; 87635; 93005; 96374; 96376; 99284

== ENCOUNTER 2023-05-13 08:36 | Outpatient (AMB) | payer OTHER, SELFPAY ==
--- NOTE | 2023-05-13 08:56 | MHC.OFFVIS ---
Intake Vital Signs 05/13/23 08:57 Height 5 ft 2 in Weight 231 lb 14.821 oz BMI 42.4 BP 114/62 Blood Pressure Location Lt brachial Position Sitting Pulse 90 Intake Visit Reasons: C Follow up/AFIB Intake Note: [facility] [place] F/u up /Afib Stockfeed Miller Required: No Plate Finisher: Plate Finisher Present Accompanied by: Daughter Allergies amoxicillin Allergy (Verified 05/13/23 09:03) Hives jennings Allergy (Verified 05/13/23 09:03) Hives raspberry Allergy (Verified 05/13/23 09:03) Hives shellfish derived Allergy (Verified 05/13/23 09:03) Shortness of Breath Medication List - Last Reconciled 05/13/23 by Joyce Orta NP-C acetaminophen (Tylenol) 325 mg PO QID PRN albuterol sulfate 90 mcg/actuation 2 puffs inhalation QID apixaban (Eliquis) 5 mg PO BID fluticasone propionate 50 mcg/actuation sprays intranasal metoprolol succinate ER (Toprol XL) 50 mg PO DAILY pravastatin 80 mg PO BEDTIME valsartan 320 mg PO DAILY HPI [facility] [place] Follow up/AFIB HPI Details Mary is a 77-year-old female with past medical history morbid obesity, hypertension, hyperlipidemia, asthma who recently underwent colonoscopy and was noted to have new finding of atrial fibrillation in the recovery period. She was recent to the emergency room for further evaluation where she was started on metoprolol and Eliquis. Today she reports she has been feeling well since her ER visit on 05/08/2023. She does not notice any heart palpitations. She has no chest discomfort at rest or with activity. She has some mild shortness of breath with activity which is not new for her. She ambulates with a cane. No presyncope, syncope, falls. No PND, orthopnea or edema. No bleeding issues reported with anticoagulation use. Taking meds as directed. She has no known cardiac history and has never been told she had AFib in the past. Nonsmoker, no alcohol use. 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 Daughter is present. [facility] Medical History (Updated 05/13/23 @ 11:20 by VARGAS TayC) Elevated cholesterol HTN (hypertension) Asthma Surgical History History of vocal cord polypectomy History of total abdominal hysterectomy Hx of cholecystectomy Hx of colonoscopy Social History Patient Tobacco Use Status: Never used Tobacco Review of Systems Const All systems reviewed & are unremarkable except as noted in HPI and below ENT Denies dizziness Card Denies chest pain, Denies chest pain at rest, Denies chest pain with activity, Denies rapid heart rate, Denies pedal edema, Denies edema, Denies leg edema, Denies lightheadedness, Denies palpitations, Denies dyspnea, Denies dyspnea on exertion and Denies orthopnea Resp Denies cough, Denies dyspnea and Denies dyspnea on exertion GI Denies hematochezia and Denies change in stool character Musc Details: arthritis joint pains at times Denies abnormal gait, Denies limited range of motion, Denies muscle cramps, Denies muscle weakness, Denies numbness, Denies radiating pain into limb, Denies stiffness and Denies tingling Neuro Denies abnormal gait, Denies dizziness, Denies numbness and Denies tingling Endo Denies palpitations Physical Exam Vital Signs: Last Vital Signs Pulse 90 05/13/23 08:57 BP 114/62 05/13/23 08:57 BMI result Body Mass Index 42.4 Const General: cooperative, healthy appearing, comfortable and no acute distress Orientation/consciousness: patient oriented x3 Neck Neck: Yes normal visual inspection Resp Effort & Inspection: normal respiratory effort Auscultation: clear to auscultation bilaterally, no crackles, no rales, no rhonchi and no wheezes Cardio Jugular venous distension: no JVD Rate: regular rate Rhythm: regular rhythm Heart sounds: S1 normal heart sound present, S2 normal heart sound present, no gallops, no murmurs and no rubs Neuro General: patient oriented x3 Extrem General: Yes normal to inspection Psych Appearance: grossly normal Mental Status: mental status grossly normal Speech and movement: Normal speech and movement present Office Procedures EKG Details: Today read by me, normal sinus rhythm, inferior Q-waves suggestive of prior inferior infarct, can not exclude anterior infarct, QTC 430 milliseconds, rate 90 [id number], Complete Assessment & Plan Assessment & Plan (1) Atrial fibrillation: Code(s): I48.91 - Unspecified atrial fibrillation Qualifiers: Atrial fibrillation type: unspecified Qualified Code(s): I48.91 - Unspecified atrial fibrillation Plan: New finding of atrial fibrillation in the postop period Post colonoscopy on 05/08/2023. From recover she was sent to the emergency room for further evaluation. She was started on metoprolol XL 50 mg daily for heart rate control. She had been on hydrochlorothiazide which was stopped at that time. She was continued on her usual valsartan. Chads Vasc score of 4. She was started on Eliquis 5 mg b.i.d. for anticoagulation which she has been tolerating well without any signs of bleeding. EKG done today showing sinus rhythm, old inferior infarct, can not exclude anterior infarct, rate 90. She denies anginal symptoms. She is unable to exercise on a treadmill as she ambulates with a cane and is morbidly obese. Will order a pharmacological nuclear stress test to evaluate for infarct or ischemia. Will order echocardiogram to assess for structural heart disease. Will order Holter monitor to evaluate for paroxysmal atrial fibrillation. Continue on metoprolol and Eliquis. Diagnosis of AFib, stroke risk with AFib reviewed with her and the need for her current med management discussed. Cardiology follow-up in 4-6 weeks, sooner if needed (2) HTN (hypertension): Code(s): I10 - Essential (primary) hypertension Qualifiers: Hypertension type: primary hypertension Qualified Code(s): I10 - Essential (primary) hypertension Plan: Well controlled at this time. No med changes made (3) Elevated cholesterol: Code(s): E78.00 - Pure hypercholesterolemia, unspecified Plan: Labs done 04/08/2023 shows LDL 132. She is on pravastatin which is followed by her PCP. If she is found to have abnormal stress, CAD then ideal LDL goal will likely be less than 70 and more aggressive management will be needed. (4) Abnormal EKG: Code(s): R94.31 - Abnormal electrocardiogram [ECG] [EKG] (5) Hospital discharge follow-up: Code(s): Z09 - Encounter for follow-up examination after completed treatment for conditions other than malignant neoplasm Orders: Orders CA echo transthoracic complete Today I48.91 - Unspecified atrial fibrillation, R94.31 - Abnormal electrocardiogram [ECG] [EKG] CA lexiscan stress w fernando Today I48.91 - Unspecified atrial fibrillation, R94.31 - Abnormal electrocardiogram [ECG] [EKG] NM cardiolite stress test Today I48.91 - Unspecified atrial fibrillation, R94.31 - Abnormal electrocardiogram [ECG] [EKG] ECG 3 day holter monitor Today I48.91 - Unspecified atrial fibrillation Coding Level of Care Code New Pt Level 4 (43179) Diagnoses Atrial fibrillation I48.91 Atrial fibrillation type: unspecified Primary hypertension I10 Hypertension type: primary hypertension Elevated cholesterol E78.00 Abnormal EKG R94.31 Hospital discharge follow-up Z09 CPT Codes EKG - CPT: 92747-[id number], Complete ([id number]) Time Spent (min) 30
[2023-05-13 08:57] VITALS: BP 114/62; PULSE 90; BMI 42.4
== END 2023-05-13 09:31 | disposition home or self-care (01) ==
PROVIDERS: PCP Internal Medicine; Visit Provider Nurse Practitioner Family
DX: I48.91 Unspecified atrial fibrillation (principal); I10 Essential (primary) hypertension; E78.00 Pure hypercholesterolemia, unspecified; R94.31 Abnormal electrocardiogram [ECG] [EKG]; Z09 Encounter for follow-up examination after completed treatment for conditions other than malignant neoplasm
CPT/HCPCS: 93010; 99204

== ENCOUNTER → 2023-05-13 08:36 | Outpatient (BNVA) | payer OTHER, SELFPAY | PROVIDERS: PCP Internal Medicine; Visit Provider Nurse Practitioner Family | DX: Z09 Encounter for follow-up examination after completed treatment for conditions other than malignant neoplasm (principal); I48.91 Unspecified atrial fibrillation; R94.31 Abnormal electrocardiogram [ECG] [EKG]; I10 Essential (primary) hypertension; E78.00 Pure hypercholesterolemia, unspecified | CPT/HCPCS: 93005 ==

== ENCOUNTER → 2023-06-17 11:07 | Outpatient (REF) | payer OTHER, SELFPAY ==
--- NOTE | 2023-06-17 11:10 | CA_ITS ---
Transthoracic Echocardiogram Patient (Last, First, Middle): Mary Waldron E Gender: Female Date of : 1945 Age: 77 Procedure Date: 06/17/2023 Procedure Type: Transthoracic Echocardiogram Location: OP Height: 165.1 cm Weight: 108.41 kg BSA: 2.13 m2 Heart Rate: bpm BP: 120 / 70 mmHg Heavy Media Operator: CHRISTI/GUERITA Referring MD: Joyce Orta LINK WIRE FABRIC MACHINE OPERATORHali Symptoms: I48.91 - Unspecified atrial fibrillation Study Quality: Fair, contrast ECG Rhythm: Sinus Conclusions: - The left ventricular systolic function is normal. The calculated ejection fraction is 68% by biplane method. - No obvious valvular pathology seen on this study. Findings Procedure Information Contrast agent, definity, is being given per protocol without apparent complications. Left Ventricle Normal left ventricular cavity size. There is normal left ventricular wall thickness. The left ventricular systolic function is normal. The calculated ejection fraction is 68% by biplane method. There is no evidence of regional wall motion abnormalities. Diastolic function is normal for age. Right Ventricle Normal right ventricular cavity size and systolic function. Atria Both atria are normal in size. Aortic Valve There is a normal trileaflet aortic valve. There is no aortic valve stenosis. There is trace (trivial) aortic valve regurgitation. Mitral Valve The mitral valve appears normal. There is trace mitral valve regurgitation. There is no mitral valve stenosis. Pulmonic Valve The pulmonic valve is likely normal. Tricuspid Valve There is mild tricuspid valve regurgitation. There is no evidence of pulmonary hypertension. Great Vessels The asc aorta is normal in size. Venous The inferior vena cava is normal in size and collapses greater than 50% with inspiration. Pericardium/Pleural There is no evidence of pericardial effusion. Prior Study Comparison No significant change compared to prior study dated: 05/07/2017. Recommendations, Care & Conclusions No obvious valvular pathology seen on this study. Measurements 2D Linear Measurements IVSd: 0.87 0.6-0.9/0.6-1.0 cm LVIDd: 4.22 3.9-5.3/4.2-5.9 cm LVIDd Index: 1.98 2.4-3.2/2.2-3.1 cm/m2 LVIDs: 2.62 2.0-3.6 cm LVPWd: 1.05 0.7-1.1 cm LA Diam: 3.20 2.7-3.8/3.0-4.0 cm LAIDs Index: 1.50 1.5-2.3 cm/m2 LV Mass: 162.22 67-162/88-224 g LV Mass Index: 76.16 43-95/49-115 g/m2 LVOT Diam: 1.90 3.0+(-)1.3 cm 2D Systolic Function EF 4C: 69.20 >55% EF 2C: 67.30 >55% EF BiP: 67.60 >55% Mitral Valve MV Pk E: 1.01 MV PK A: 0.79 MV Decel Time: 243.00 E/A: 1.30 E'Lateral: 9.14 E'Medial: 8.59 E/E' Med: 11.80 E/E' Lat: 11.10 PHT: 71.00 MVA PHT: 3.10 Decel [place]: 4.15 Aortic Valve AoV Pk Homer: 1.41 AoV Mn Homer: 0.91 AoV VTI: 0.37 AoV Pk Grad: 8.00 Aov Mn Grad: 4.00 ANDREW Cont.VTI: 1.74 LVOT LVOT Pk Homer: 0.84 LVOT Mn Homer: 0.54 LVOT VTI: 0.23 LVOT Pk Grad: 3.00 LVOT Mn Grad: 1.00 LVOT Diam: 1.90 LVOT Area: 2.84 Diastolic Function MV Pk E: 1.01 MV Pk A: 0.79 E/A: 1.30 E'Medial: 8.59 E/E' Med: 11.80 E' Laterial: 9.14 E/E' Lat: 11.10 Right Ventricle TAPSE (mm): 27.20 TVS' Homer: 11.60 Tricuspid Valve TR Pk Homer: 2.63 TR Pk Grad: 28.00 RA Press: 3.00 RVSP: 31.00 Great Vessels Aorta Sinus of Valsalva: 3.10 2.0-3.5 cm Ao Asc: 3.10 2.1-3.4 cm Updated in Other Vendor System with Status of Final Jesus Alberto Grider MD electronically signed on 06/18/2023 9:02:16 AM with status of Final
--- NOTE | 2023-06-17 11:10 | HM_ITS ---
* Total monitoring time 3 days. * Underlying rhythm is sinus with an average rate of 68/Min. Range 48 to 142/Min. * Rare supraventricular and ventricular ectopy. * No significant pauses or AV blocks. * No patient markers. No diary events. MTDD
== END ==
LOC: HO.CARD 11:07
PROVIDERS: PCP Internal Medicine; Visit Provider Nurse Practitioner Family
DX: I48.91 Unspecified atrial fibrillation (principal); R94.31 Abnormal electrocardiogram [ECG] [EKG]
CPT/HCPCS: 93242; 93306; Q9957

== ENCOUNTER → 2023-06-17 11:10 | Outpatient (BNV) | payer OTHER, SELFPAY | PROVIDERS: PCP Internal Medicine; Visit Provider Internal Medicine | DX: I47.10 Supraventricular tachycardia, unspecified (principal) | CPT/HCPCS: 93244; 93306 ==

== ENCOUNTER → 2023-08-01 07:41 | Outpatient (REF) | payer OTHER, SELFPAY ==
--- NOTE | ~2023-08-01 | NM_ITS ---
Myocardial perfusion study Indication: Atrial fibrillation to evaluate for myocardial ischemia Technique: The patient was brought in for a Lexiscan perfusion study on 08/01/2023. Patient performed low-level exercise and was injected 0.4 mg of Lexiscan intravenously. Within a minute of injection, 30 mCi of sestamibi was given intravenously. Images were obtained using the SPECT gamma camera interlaced with the gating device. Images were obtained in supine position. Resting perfusion study was performed on 08/06/2023. Patient was administered 30 mCi of sestamibi intravenously at rest. Images were then obtained in supine position. Images obtained with and without CT attenuation. Total DLP 167 mGy-cm. Images were processed with the software and compared side to side in short axis, horizontal long axis and vertical long axis views. Findings: Both stress and rest perfusion study was somewhat suboptimal due to intense subdiaphragmatic liver uptake as well as both arms by the patient's side causing distal lateral wall attenuation artifact. Also during stress perfusion study there appears to be gating artifact The stress perfusion study showed non attenuated images show severely reduced uptake in the distal lateral wall as well as mildly reduced uptake in the mid and basal inferior and severely reduced uptake in the inferoapical wall of the LV myocardium. Attenuation corrected images show normalized uptake of radiotracer in all segments of LV myocardium. The gated study shows normal LV systolic function with calculated LVEF of 62%. LV cavity is normal size. The gated study shows normal systolic wall thickening and contraction of segments. Resting study shows non attenuated images show no significant change in perfusion pattern compared to stress perfusion study. Attenuation corrected images show mildly reduced uptake in the apex of the LV myocardium. Gating at rest reveals normal systolic wall motion with ejection fraction at 71%. The findings are consistent with no clear reversible defect. Fixed defect noted on non attenuated corrected images most likely due to attenuation.. NM/NM cardiolite stress test Impression: 1. Myocardial perfusion imaging study shows likely normal myocardial perfusion 2. Gated LVEF is 62% 3. Transient ischemic dilatation not present EKG is nondiagnostic for ischemia
--- NOTE | 2023-08-01 07:47 | CA_ITS ---
Acquisition Time: 2023-08-01 07:51:15 Total Exercise Time: 00:02:00 Test Indications: Dyspnea Medications: SEE H Protocol: LEXISCAN Max HR: 108 BPM 76% of Pred: 141 BPM Max BP: 118/072 mmHG Max Work Load: 1.0 METS Pharmacolgical stress test with lexiscan injection while sitting and kicking her legs, without anginal symptoms, without arrhythmias, with normotensive response to injection, with nondiagnoistic EKGs. Nuclear images pending. Test reviewed with Dr. Abdullahi. Referred By: Joyce Orta Overread By: Kizzy Sweeney
== END ==
LOC: HO.CARD 07:41
PROVIDERS: PCP Internal Medicine; Visit Provider Nurse Practitioner Family
DX: I48.91 Unspecified atrial fibrillation (principal); R94.31 Abnormal electrocardiogram [ECG] [EKG]
CPT/HCPCS: 78452; 93017; A9500; J0280; J2785

== ENCOUNTER → 2023-08-01 07:47 | Outpatient (BNV) | payer OTHER, SELFPAY | PROVIDERS: PCP Internal Medicine; Visit Provider Nurse Practitioner | DX: R06.00 Dyspnea, unspecified (principal) | CPT/HCPCS: 78452; 93016; 93018 ==

== ENCOUNTER 2023-10-15 08:42 | Outpatient (REF) | payer OTHER, SELFPAY ==
[2023-10-15 11:40] LABS: Alanine Aminotransferase 19 U/L (0-31); Albumin Level 4.2 g/dL (3.5-5.0); Alkaline Phosphatase 88 U/L (39-117); Anion Gap 14 (12-20); Aspartate Amino Transferase 21 U/L (5-31); Bilirubin Total 0.4 mg/dL (0.0-1.0); Blood Urea Nitrogen 18 mg/dL (9-16); Calcium 9.6 mg/dL (8.4-10.2); Carbon Dioxide 23 mmol/L (22-29); Chloride 104 mmol/L (96-108); Estimated Glomerular Filt Rate 51; Glucose Random 82 mg/dL (60-115); Potassium 4.4 mmol/L (3.3-5.1); Sodium 137 mmol/L (135-145); Total Protein 7.9 g/dL (6.5-8.0); Vitamin D 25-OH Total 31.6 ng/mL (>30)
[2023-10-15 16:56] LABS: Folate 9.5 ng/mL (> or = 4.0)
[2023-10-16 15:39] LABS: Vitamin B12 177 pg/mL (200-900)
== END 2023-10-15 08:43 | disposition home or self-care (01) ==
LOC: HO.LAB 08:42
PROVIDERS: PCP Internal Medicine; Visit Provider Internal Medicine
DX: E78.00 Pure hypercholesterolemia, unspecified (principal); E87.1 Hypo-osmolality and hyponatremia; H26.9 Unspecified cataract; I12.9 Hypertensive chronic kidney disease with stage 1 through stage 4 chronic kidney disease, or unspecified chronic kidney disease; N18.9 Chronic kidney disease, unspecified; M81.8 Other osteoporosis without current pathological fracture; Z86.010 Personal history of colon polyps
CPT/HCPCS: 36415; 80053; 82306; 82607; 82746

== ENCOUNTER 2024-04-06 10:10 | Outpatient (REF) | payer OTHER, SELFPAY ==
--- NOTE | ~2024-04-06 | MM_ITS ---
EXAMINATION: MM SCREENING DIGITAL BREAST TOMOSYNTHESIS, BILATERAL CLINICAL INFORMATION: Screening. Asymptomatic. COMPARISON: Mammography: This study is compared with prior exams dating back to 2019. TECHNIQUE: Digital breast tomosynthesis is performed in both the craniocaudal and mediolateral oblique views along with computer-aided detection (CAD). Synthesized 2D images are generated from the tomosynthesis. FINDINGS: The breasts are heterogeneously dense, which may obscure small masses (ACR BI-RADS breast composition Category c). There are unchanged, benign calcifications of the skin of the inferior aspect of the left breast. There are no significant masses, abnormal calcifications, or other abnormalities. MM/MM tomosynthesis screening BI IMPRESSION: No mammographic evidence of malignancy. ASSESSMENT: BI-RADS BI-RADS 2 - Benign Findings RECOMMENDATION: Routine annual mammography screening. 1 year F/U This examination should not preclude the clinical evaluation of a suspicious palpable abnormality. This patient's information was entered into a reminder system with a target due date for their next mammogram. Electronically signed by: Hamida Smith MD 05/04/2024 09:57 AM EDT
== END 2024-04-06 10:11 | disposition home or self-care (01) ==
LOC: HO.MAMMO 10:10
PROVIDERS: PCP Internal Medicine; Visit Provider Internal Medicine
DX: Z12.31 Encounter for screening mammogram for malignant neoplasm of breast (principal)
CPT/HCPCS: 77063; 77067

== ENCOUNTER → 2024-04-06 10:30 | Outpatient (BNV) | payer OTHER, SELFPAY | PROVIDERS: PCP Internal Medicine; Visit Provider Radiology Diagnostic Radiology | DX: Z12.31 Encounter for screening mammogram for malignant neoplasm of breast (principal) | CPT/HCPCS: 77063; 77067 ==

== ENCOUNTER 2024-05-06 08:27 | Outpatient (REF) | payer OTHER, SELFPAY ==
[2024-05-06 08:49] LABS: MANUAL DIFF FLAG NO
[2024-05-06 09:36] LABS: Basophils Absolute Auto 0.1 X10*3/uL (0.0-0.2); Basophils Percent Auto 0.9 % (0-2); Eosinophils Absolute Auto 0.2 X10*3/uL (0.0-0.4); Eosinophils Percent Auto 1.7 % (0-4); Hematocrit 35.6 % (37.0-47.0); Hemoglobin 11.7 g/dl (12.0-16.0); Imm Gran Abs Auto 0.03 X10*3/uL (0.00-0.03); Imm Gran Pct Auto 0.3 % (0.0-0.4); Lymphocytes Absolute Auto 3.9 X10*3/uL (1.2-4.9); Lymphocytes Percent Auto 34.3 % (20-40); Mean Corpuscular HGB Conc 32.9 g/dl (31.0-35.0); Mean Corpuscular Hemoglobin 26.8 pg (27.0-33.0); Mean Corpuscular Volume 81.5 fL (80.0-98.0); Mean Platelet Volume 11.6 fL (9.4-12.3); Monocytes Absolute Auto 0.8 X10*3/uL (0.1-1.2); Monocytes Percent Auto 6.7 % (2-11); Neutrophils Absolute Auto 6.4 x10*3/uL (2.0-8.3); Neutrophils Percent Auto 56.1 % (45-73); Platelet Count 279 X10*3/uL (160-400); Red Blood Count 4.37 X10*6/uL (4.20-5.50); Red Cell Distribution Width 14.2 % (11.0-16.0); White Blood Count 11.3 X10*3/uL (4.8-10.8)
[2024-05-06 10:28] LABS: Alanine Aminotransferase 16 U/L (0-31); Alkaline Phosphatase 70 U/L (39-117); Anion Gap 11 (12-20); Aspartate Amino Transferase 21 U/L (5-31); Bilirubin Total 0.4 mg/dL (0.0-1.0); Blood Urea Nitrogen 14 mg/dL (9-16); Calcium 9.3 mg/dL (8.4-10.2); Carbon Dioxide 23 mmol/L (22-29); Chloride 104 mmol/L (96-108); Cholesterol 121 mg/dL (<200); Estimated Glomerular Filt Rate 57; Glucose Random 85 mg/dL (60-115); HDL Cholesterol 54 mg/dL (>40); LDL Cholesterol Calculated 56 mg/dL (<100); Potassium 4.3 mmol/L (3.3-5.1); Sodium 134 mmol/L (135-145); Total Protein 7.8 g/dL (6.5-8.0); Triglycerides 57 mg/dL (<150)
[2024-05-06 10:43] LABS: Folate 10.1 ng/mL (> or = 4.0); Vitamin B12 333 pg/mL (200-900)
== END 2024-05-06 08:28 | disposition home or self-care (01) ==
LOC: HO.LAB 08:27
PROVIDERS: PCP Internal Medicine; Visit Provider Internal Medicine
DX: J45.909 Unspecified asthma, uncomplicated (principal); E78.00 Pure hypercholesterolemia, unspecified; I10 Essential (primary) hypertension; I48.91 Unspecified atrial fibrillation; Z79.01 Long term (current) use of anticoagulants
CPT/HCPCS: 36415; 80053; 80061; 82607; 82746; 85025

== ENCOUNTER 2024-10-27 09:36 | Outpatient (REF) | payer OTHER, SELFPAY ==
[2024-10-27 10:21] LABS: MANUAL DIFF FLAG NO
[2024-10-27 10:32] LABS: Basophils Absolute Auto 0.1 X10*3/uL (0.0-0.2); Basophils Percent Auto 0.7 % (0-2); Eosinophils Absolute Auto 0.2 X10*3/uL (0.0-0.4); Eosinophils Percent Auto 1.6 % (0-4); Hematocrit 37.4 % (37.0-47.0); Hemoglobin 12.1 g/dl (12.0-16.0); Imm Gran Abs Auto 0.03 X10*3/uL (0.00-0.03); Imm Gran Pct Auto 0.3 % (0.0-0.4); Lymphocytes Absolute Auto 3.8 X10*3/uL (1.2-4.9); Mean Corpuscular HGB Conc 32.4 g/dl (31.0-35.0); Mean Corpuscular Hemoglobin 26.9 pg (27.0-33.0); Mean Corpuscular Volume 83.1 fL (80.0-98.0); Mean Platelet Volume 11.3 fL (9.4-12.3); Monocytes Absolute Auto 0.8 X10*3/uL (0.1-1.2); Monocytes Percent Auto 7.1 % (2-11); Neutrophils Absolute Auto 6.8 x10*3/uL (2.0-8.3); Neutrophils Percent Auto 58.3 % (45-73); Platelet Count 247 X10*3/uL (160-400); Red Cell Distribution Width 13.9 % (11.0-16.0); White Blood Count 11.7 X10*3/uL (4.8-10.8)
--- OUTSIDE RECORDS SUMMARY | 2024-10-27 10:51 | XMS_ITS ---
Author Organization [facility] Address [address] [place] [address] Care Team Providers Care Financial Wellness Coach Name Role Phone Katie Rodriguez Primary Care Provider Unavailab Joseph Camarena Unavailable [phone] REASON FOR VISIT screening,hx polyps Problems Problem Type SNOMED Code ICD Code Onset Dates Problem Status W/U Status Risk Notes Problem History of adenomatous polyp of colon (660221160) Hx of adenomatous colonic polyps (Z86.010) Active confirmed Problem Diverticulosis of colon (990927786) Diverticulosis of colon (K57.30) Active confirmed Encounters Encounter Location Date Provider Diagnosis [facility] [place] Outpatient [address] [place] [address] [id number] 05/08/2023 Joseph Núñez Colon cancer scree braden Z12.11 ; Hx of adenomatous colonic polyps Z86.010 ; Diverticulosis of colon K57.30 and Internal hemorrhoids K64.8 Assessments Encounter Date Diagnosis (ICD Code) Assessment Notes Treatment Notes Treatment Clinical Notes Section Notes 05/08/2023 Colon cancer screening (ICD-10 - Z12.11) 05/08/2023 Hx of adenomatous colonic polyps (ICD-10 - Z86.010) 05/08/2023 Diverticulosis of colon (ICD-10 - K57.30) 05/08/2023 Internal hemorrhoids (ICD-10 - K64.8) Plan Of Treatment No Information Progress Notes * ZAK DE LA GARZADOB:1945 ( 79 yo F)Acc No.[id number]:05/08/2023 COLON WITH MAC Patient:?ZAK DE LA GARZA Provider:?Joseph Núñez MD :1945???Age:77 Y???Sex:Female D ate:05/08/2023 Address:[address] [place] [address], [id number] Pcp:Katie Rodriguez Subjective: * Chief Complaints: * ???1. Screening,hx polyps. * Medical History:? Objective: * Vitals:? Assessment: * Assessment: 1.?Colon cancer screening - Z12.11 (Primary)???2.?Hx of adenomatous colonic polyps - Z86.010???3.?Diverticulosis of colon - K57.30???4.?Internal hemorrhoids - K64.8??? Plan: * Treatment: * Procedure Codes:?58888 DIAGN OSTIC COLONOSCOPY * * The named appointment provid er may or may not be the originator of this progress note, and it is not deemed complete until electronically signed by the appointment provider. Sign off status: Pending * Provider:?Joseph Núñez MD Date:? 023 Generated for Tamia galvan/Dilshad/eTransmitting on:?10/27/2024 10:51 AM EDT
--- OUTSIDE RECORDS SUMMARY | 2024-10-27 10:51 | XMS_ITS | Patient Health Record ---
Author Organization [facility] Address [address] [place] [address] Care Team Providers Care Ornamental Ironworking Supervisor Name Role Phone Katie Rodriguez Primary Care Provider Unavailab Joseph Camarena Unavailable [phone] Allergies Allergen (clinical drug ingredient) Drug/Non Drug Allergy documented on EMR Reaction Allergy Type Onset Date Status amoxicillin Amoxicillin Unknown Drug Allergy Act madeleine Raspberry Unknown Drug Allergy Active Peña Unknown Drug Allergy Active Reason For Referral No Information Medications Medication SIG (Take, Route, Frequency, Duration) Notes Start Date End Date Status Hair Skin Nails Not- Taking Dulcolax (colon prep) 5 MG take at 3:00 p.m and 7:00p.m. Orally two tablets twice a day for one day for 1 day 02/19/2023 Active Valsartan Active MiraLax (colon prep) 17 GM/SCOOP 1 238Gm bottle mixed with Gatorade or Crystal Light Orally begin at 5:00 p.m. the day before the procedure for 1 day 02/19/2023 Active Fluticasone Propionate Active hydroCHLOROthiazide Active Albuterol Sulfate HFA Active Social History Tobacco Use: Social History Observation Description Date Details (start date - stop date) Never Smoker NA - NA Tobacco Use/Smoking Question Answer Notes Patient is a nonsmoker Alcohol Screen Question Answer Notes Did you have a drink containing alcohol in the p ast year? No Points 0 Interpretation Negative Problems Problem Type SNOMED Code ICD Code Onset Dates Problem Status W/U Status Risk Notes Problem 782081904 Colon cancer screening (Z12.11) Active confirmed Problem 404978395500922 Preprocedural examination (Z01.818) Active confirmed Problem 353750150 History of colon polyps (Z86.010) Active confirmed Problem History of adenomatous polyp of colon (386572254) Hx of adenomatous colonic polyps (Z86.010) Active confirmed Problem Diverticulosis of colon (967043997) Diverticulosis of colon (K57.30) Active confirmed Plan Of Treatment Future Test Test Name Order Date COLONOSCOPY 02/12/2023 Insurance Providers Payer Name Payer Address Payer Phone Subscriber Number Group Number Insured Name Patient Relationship to Insured Coverage Start Date Coverage End Date [facility] [address] Attn Claims CECELIA Ryan [id number] ZAK DE LA GARZA Self - patient is the insured Medical (General) History Medical History History ICD Code Asthma Hypertension Denies NE,DM,CVA,renal disease Colonoscopy in 2007--polyp w as removed although the report is presently not available Surgical History Surgery Date(Month/Year) Cholecystectomy [facility] Vocal cord polys Dr. Tobin
[2024-10-27 12:18] LABS: Alanine Aminotransferase 47 U/L (0-31); Alkaline Phosphatase 102 U/L (39-117); Anion Gap 12 (12-20); Aspartate Amino Transferase 43 U/L (5-31); Bilirubin Total 0.4 mg/dL (0.0-1.0); Blood Urea Nitrogen 17 mg/dL (9-16); Calcium 8.8 mg/dL (8.4-10.2); Carbon Dioxide 22 mmol/L (22-29); Chloride 105 mmol/L (96-108); Estimated Glomerular Filt Rate 55; Ferritin 67 ng/mL (10-250); Glucose Random 81 mg/dL (60-115); Potassium 3.9 mmol/L (3.3-5.1); Sodium 135 mmol/L (135-145); Vitamin B12 232 pg/mL (200-900)
== END 2024-10-27 09:37 | disposition home or self-care (01) ==
LOC: HO.10HDL 09:36
PROVIDERS: Visit Provider Internal Medicine
DX: E78.00 Pure hypercholesterolemia, unspecified (principal); M17.0 Bilateral primary osteoarthritis of knee; I48.91 Unspecified atrial fibrillation; Z79.01 Long term (current) use of anticoagulants
CPT/HCPCS: 36415; 80053; 82607; 82728; 85025

== ENCOUNTER 2025-04-27 07:53 | Outpatient (REF) | payer OTHER, SELFPAY ==
[2025-04-27 09:56] LABS: MANUAL DIFF FLAG NO
[2025-04-27 09:59] LABS: Hematocrit 37.3 % (37.0-47.0); Hemoglobin 11.9 g/dl (12.0-16.0); Imm Gran Abs Auto 0.03 X10*3/uL (0.00-0.03); Imm Gran Pct Auto 0.3 % (0.0-0.4); Lymphocytes Absolute Auto 3.6 X10*3/uL (1.2-4.9); Mean Corpuscular HGB Conc 31.9 g/dl (31.0-35.0); Mean Corpuscular Hemoglobin 26.4 pg (27.0-33.0); Mean Corpuscular Volume 82.9 fL (80.0-98.0); NRBC Abs Auto 0.000 X10*3/uL (0.0-0.012); NRBC Pct Auto 0.0 /100WBC (0.0-0.2); Platelet Count 313 X10*3/uL (160-400); Red Blood Count 4.50 X10*6/uL (4.20-5.50); White Blood Count 10.6 X10*3/uL (4.8-10.8)
[2025-04-27 10:21] LABS: Alanine Aminotransferase 38 U/L (0-31); Albumin Level 4.5 g/dL (3.5-5.0); Alkaline Phosphatase 93 U/L (39-117); Anion Gap 10 (12-20); Aspartate Amino Transferase 37 U/L (5-31); Blood Urea Nitrogen 16 mg/dL (9-16); Calcium 9.3 mg/dL (8.4-10.2); Carbon Dioxide 28 mmol/L (22-29); Chloride 103 mmol/L (96-108); Cholesterol 126 mg/dL (<200); Estimated Glomerular Filt Rate 56; HDL Cholesterol 61 mg/dL (>40); Potassium 4.3 mmol/L (3.3-5.1); Sodium 137 mmol/L (135-145); Total Protein 7.9 g/dL (6.5-8.0); Triglycerides 52 mg/dL (<150)
[2025-04-28 06:38] LABS: Lyme Abs Screen <0.90 index
== END 2025-04-27 07:54 | disposition home or self-care (01) ==
LOC: HO.10HDL 07:53
PROVIDERS: Visit Provider Internal Medicine
DX: E78.00 Pure hypercholesterolemia, unspecified (principal); H26.9 Unspecified cataract; I10 Essential (primary) hypertension; I48.91 Unspecified atrial fibrillation; R21 Rash and other nonspecific skin eruption; Z79.01 Long term (current) use of anticoagulants
CPT/HCPCS: 36415; 80053; 80061; 82306; 85025; 86617; 86618

== ENCOUNTER 2025-05-25 10:16 | Outpatient (REF) | payer OTHER, SELFPAY | END 2025-05-25 10:17 | disposition home or self-care (01) | LOC: HO.MAMMO 10:16 | PROVIDERS: PCP Internal Medicine; Visit Provider Internal Medicine | DX: Z12.31 Encounter for screening mammogram for malignant neoplasm of breast (principal) | CPT/HCPCS: 77063; 77067 ==

== ENCOUNTER → 2025-05-25 10:30 | Outpatient (BNV) | payer OTHER, SELFPAY | PROVIDERS: PCP Internal Medicine; Visit Provider Internal Medicine | DX: Z12.31 Encounter for screening mammogram for malignant neoplasm of breast (principal) | CPT/HCPCS: 77063; 77067 ==